=== PATIENT | female | born 1990 | race Caucasian/White ===

== ENCOUNTER 2018-05-27 12:37 | Emergency (ER) | payer MEDICAID, SELFPAY ==
[~2018-05-27] VITALS: Ht 152.4 cm; Wt 57.3 kg
[2018-05-27 12:49] VITALS: BP 110/75
[2018-05-27] MEDS ORDERED: DEXAMETHASONE 4 MG TABLET PO ONE (13:00)
[2018-05-27] MEDS ORDERED: HYDROcodone/APAP 7.5-325MG/15ML UDC PO ONE (13:00)
[2018-05-27] MEDS ORDERED: DEXAMETHASONE 4 MG TABLET ONE ×2 (13:13→13:18)
[2018-05-27] MEDS ORDERED: HYDROcodone/APAP 7.5-325MG/15ML UDC ONE (13:13)
[2018-05-27] MEDS ORDERED: KETOROLAC 30 MG/1 ML ONE (13:47)
[2018-05-27] MEDS ORDERED: KETOROLAC 30 MG/1 ML IM ONE (14:00)
== END 2018-05-27 14:27 | disposition home or self-care (01) ==
LOC: ED 13:50
DX: J03.00 Acute streptococcal tonsillitis, unspecified (principal)
CPT/HCPCS: 87081; 87147; 87880; 96372; 99283; J1885

== ENCOUNTER 2021-03-18 23:09 | Inpatient (IN) | payer MEDICAID ==
[~2021-03-18] VITALS: Ht 152.4 cm; Wt 80.0 kg
[2021-03-18 23:20] VITALS: BP 127/72
[2021-03-19 00:02] VITALS: BP 127/72
[2021-03-19 01:09] LABS: MICROSCOPIC INDICATED
[2021-03-19] MEDS ORDERED: morphine SULFATE 10 MG/ML, 1ML IM ONE (01:12)
[2021-03-19] MEDS ORDERED: morphine SULFATE 10 MG/ML, 1ML ONE (01:14)
[2021-03-19] MEDS ORDERED: LIDOCAINE 1%, 20ML ONE (02:54)
[2021-03-19] MEDS ORDERED: NEWBORN KIT ONE (02:54)
[2021-03-19] MEDS ORDERED: MISOPROSTOL 200 MCG TABLET ONE (02:55)
[2021-03-19] MEDS ORDERED: OXYTOCIN 30U/ 0.9% NaCL 500ML 500 ML ONE (02:55)
[2021-03-19] MEDS ORDERED: FENTANYL PF 100 MCG/2ML ONE (02:55)
[2021-03-19] MEDS: FENTANYL PF 100 MCG/2ML IVPush PRN ×2 (03:01→20:10)
[2021-03-19] MEDS ORDERED: METOCLOPRAMIDE 5 MG/ML, 2ML IVPush PRN (03:30)
[2021-03-19] MEDS ORDERED: SODIUM CITRATE/CITRIC ACID 30 ML UDC PO PRN (03:30)
[2021-03-19] MEDS ORDERED: CALCIUM CARBONATE 500 MG TAB.CHEW PO PRN (03:30)
[2021-03-19] MEDS ORDERED: FENTANYL PF 100 MCG/2ML IV PRN (03:30)
[2021-03-19] MEDS ORDERED: TERBUTALINE 1 MG/ML, 1ML SQ PRN (03:30)
[2021-03-19] MEDS ORDERED: LACTATED RINGERS 1,000 ML IV SCH (03:30)
[2021-03-19] MEDS ORDERED: ONDANSETRON 2MG/ML, 2ML IVPush PRN ×2 (03:30→05:30)
[2021-03-19] MEDS ORDERED: TERBUTALINE 1 MG/ML, 1ML IVPush PRN (03:30)
[2021-03-19] MEDS ORDERED: OXYTOCIN 30U/ 0.9% NaCL 500ML 500 ML IV ONE (03:30)
[2021-03-19] MEDS ORDERED: D5%-LACTATED RINGERS 1,000 ML IV SCH (03:30)
[2021-03-19] MEDS ORDERED: OXYTOCIN 30U/ 0.9% NaCL 500ML 500 ML IV PRN (03:30)
[2021-03-19 03:41] LABS: BASOPHILS % (AUTO) 0 % (0-1); EOSINOPHILS % (AUTO) 1 % (1-7); LYMPHOCYTES % (AUTO) 29 % (22-44); MEAN CORPUSCULAR HEMOGLOBIN 32.1 pg (27.0-34.8); MEAN CORPUSCULAR HGB CONC 34.6 g/dL (32.4-35.8); MONOCYTES % (AUTO) 7 % (2-9); NEUTROPHILS % (AUTO) 63 % (42-75); PLATELET COUNT 286 x10^3/uL (130-400); RED BLOOD COUNT 3.57 x10^6/uL (3.82-5.3); RED CELL DISTRIBUTION WIDTH 13.7 % (9.6-15.2)
[2021-03-19 03:50] LABS: AMPHETAMINE SCREEN, URINE Negative (Negative); BARBITURATE SCREEN, URINE Negative (Negative); BENZODIAZEPINE SCREEN, URINE Negative (Negative); CANNABINOID SCREEN, URINE Positive (Negative); COCAINE SCREEN, URINE Negative (Negative); METHADONE SCREEN, URINE Negative (Negative); OPIATE SCREEN, URINE Negative (Negative)
[2021-03-19] MEDS ORDERED: FENTANYL/BUPIV./NS/PF 250 ML EPIDCONT ONE (04:01)
[2021-03-19] MEDS ORDERED: BUPIVACAINE 0.25% ONE (04:01)
[2021-03-19] MEDS: EPHEDRINE 50 MG/ML, 1ML IVPush PRN ×2 (05:13→05:48)
[2021-03-19] MEDS ORDERED: LACTATED RINGERS 1,000 ML IVBOLUS PRN (05:30)
[2021-03-19] MEDS ORDERED: DIPHENHYDRAMINE 50 MG/ML, 1ML IVPush PRN (05:30)
[2021-03-19] MEDS ORDERED: NALOXONE 0.4 MG/ML, 1ML IVPush PRN (05:30)
[2021-03-19] MEDS ORDERED: FENTANYL/BUPIV./NS/PF 250 ML EPIDCONT SCH (05:30)
[2021-03-19] MEDS: LACTATED RINGERS 1,000 ML IV SCH ×2 (14:01→17:44)
[2021-03-19] MEDS ORDERED: OXYcodone/APAP 5/325MG TABLET ONE ×2 (20:28→20:29)
[2021-03-19] MEDS: OXYcodone/APAP 5/325MG TABLET PO PRN (20:30)
[2021-03-19] MEDS ORDERED: SIMETHICONE 80 MG CHEW TAB PO PRN (21:30)
[2021-03-19] MEDS: OXYTOCIN 30U/ 0.9% NaCL 500ML 500 ML IV SCH (21:30)
[2021-03-19] MEDS ORDERED: MISOPROSTOL 200 MCG TABLET PR PRN (21:30)
[2021-03-19 21:55] VITALS: BP 116/68
[2021-03-20] MEDS: IBUPROFEN 600 MG TABLET PO PRN ×4 (00:27→21:03)
[2021-03-20] MEDS: OXYcodone/APAP 5/325MG TABLET PO PRN ×4 (00:27→21:03)
[2021-03-20 04:15] VITALS: BP 102/67
[2021-03-20 05:25] LABS: BASOPHILS % (AUTO) 0 % (0-1); EOSINOPHILS % (AUTO) 1 % (1-7); LYMPHOCYTES % (AUTO) 16 % (22-44); MEAN CORPUSCULAR HGB CONC 34.3 g/dL (32.4-35.8); MONOCYTES % (AUTO) 7 % (2-9); NEUTROPHILS % (AUTO) 76 % (42-75); PLATELET COUNT 286 x10^3/uL (130-400); RED BLOOD COUNT 3.31 x10^6/uL (3.82-5.3); RED CELL DISTRIBUTION WIDTH 13.5 % (9.6-15.2)
[2021-03-20 07:10] VITALS: BP 120/77
[2021-03-20] MEDS: OXYTOCIN 30U/ 0.9% NaCL 500ML 500 ML IV SCH ×2 (07:30→17:30)
[2021-03-20] MEDS: DOCUSATE 100 MG CAPSULE PO PRN ×2 (08:40→21:03)
[2021-03-20] MEDS ORDERED: PRENATAL VIT/IRON/FA 1 EACH TABLET PO SCH (09:00)
[2021-03-20 11:53] VITALS: BP 122/81
[2021-03-20 16:25] VITALS: BP 121/84
[2021-03-20 20:30] VITALS: BP 132/81
[2021-03-21] MEDS: OXYcodone/APAP 5/325MG TABLET PO PRN ×2 (01:13→05:39)
[2021-03-21] MEDS: OXYTOCIN 30U/ 0.9% NaCL 500ML 500 ML IV SCH (03:30)
[2021-03-21] MEDS: IBUPROFEN 600 MG TABLET PO PRN (05:38)
[2021-03-21 08:00] VITALS: BP 120/76
== END 2021-03-21 10:45 | disposition home or self-care (01) | DRG 807 ==
LOC: LDOP 23:09 → UNDOADMIN 03-19 02:48 → LDIP 03-19 02:48 → EDIP 03-19 02:48 → 2NW 03-19 22:05
PROVIDERS: ADMIT Obstetrics & Gynecology; ATTEND Obstetrics & Gynecology
PROC: 10E0XZZ Delivery of Products of Conception, External Approach (ICD-10-PCS; principal; 2021-03-19)
PROC: 0KQM0ZZ Repair Perineum Muscle, Open Approach (ICD-10-PCS; 2021-03-19)
DX: O42.92 Full-term premature rupture of membranes, unspecified as to length of time between rupture and onset of labor (principal); Z37.0 Single live birth; Z20.822 Contact with and (suspected) exposure to COVID-19; O70.1 Second degree perineal laceration during delivery; Z88.0 Allergy status to penicillin; Z3A.37 37 weeks gestation of pregnancy
CPT/HCPCS: 36415; J3490; 76815; 80307; 81001; 84112; 85025; 86592; 86850; 86900; 87086; 87635; 89060; G0378; J3010; J2270; J2590; J7120; Q0114